=== PATIENT | female | born 1975 | race Caucasian/White ===

== ENCOUNTER → 2018-12-17 | Outpatient (CLI) | payer OTHER ==
[~2018-12-17] MED LIST: CETI10CA8 PO; HYDR-317 PO; KET10 PO; LEVO50TA86 PO; LORA10CA3 PO; MULT-1335 PO; PER PO
== END ==
LOC: MAMO 00:37
PROVIDERS: ATTEND Obstetrics & Gynecology
DX: Z02.9 Encounter for administrative examinations, unspecified (principal)

== ENCOUNTER → 2018-12-17 | Outpatient (CLI) | payer OTHER ==
[~2018-12-17] MED LIST changes: +IOPAMIDOL 76% 150 ML INFUS BTL 0 ML ONE
--- NOTE | 2018-12-17 09:41 | RADIOLOGY IMAGING REPORT ---
FACILITY: [facility] - [place] PATIENT NAME: Joelle Sanchez : 1975 MR: [id number] V: [id number] EXAM DATE: ORDERING PHYSICIAN: JOSE ANTONIO COLORADO TECHNOLOGIST: Location: [facility] Patient: Joelle Sanchez : 1975 Visit/Account:[id number] Date of Sevice: 12/17/2018 ADDENDUM #1 ADDENDUM: One of the following dose optimization techniques was utilized in the performance of this exam: Autom ated exposure control; adjustment of the mA and/or kV according to the patient's size; or use of an i terative reconstruction technique. Specific details can be referenced in the facility's radiology C T exam operational policy. Report Dictated By: Ajay Garcia MD at 12/20/2018 3:37 PM Report E-Signed By: Ajay Garcia MD at 12/20/2018 3:37 PM ORIGINAL REPORT Abdominal CT scan without contrast. HISTORY: Recent epigastric surgery, history of "epigastric" hernia. COMPARISON: 02/25/2014. 3 mm thick and [address] images were obtained from the diaphragm to the iliac crests using 24 ounces of oral water. No intravenous contrast. FINDINGS: Parenchymal detail is limited without intravenous contrast. Bowel detail is limited without iodinate d contrast. Lung bases are clear. The left liver lobe is slightly elongated, unchanged. The liver and spleen are otherwise normal in s ize. Low-density areas are present in the liver consistent with unopacified vessels. Surgical clips are present in the gallbladder fossa. The stomach and duodenum contain moderate amounts of fluid. The pancreas is not well-visualized. The kidneys and adrenal glands are normal in size. No hydronep hrosis. No abnormal renal calcifications are identified. A small fatty collection measuring 5 mm in transverse diameter protrudes into the umbilicus, unchanged. No acute bony abnormalities. FINDINGS: Absent gallbladder. Tiny fat-containing umbilical hernia, unchanged. Report Dictated By: Ajay Garcia MD at 12/17/2018 9:22 AM Report E-Signed By: Ajay Garcia MD at 12/17/2018 9:34 AM WSN:[facility]
== END ==
LOC: CT 00:35
PROVIDERS: ATTEND Family Medicine
DX: K42.9 Umbilical hernia without obstruction or gangrene (principal); Z90.49 Acquired absence of other specified parts of digestive tract
CPT/HCPCS: 74150; Q9967

== ENCOUNTER → 2019-03-19 | Outpatient (CLI) | payer OTHER ==
[~2019-03-19] MED LIST changes: -IOPAMIDOL 76% 150 ML INFUS BTL 0 ML ONE
--- NOTE | 2019-03-20 13:57 | RADIOLOGY IMAGING REPORT ---
FACILITY: [facility] - [place] PATIENT NAME: BEATA JIMENEZ : [id number] MR: [id number] V: [id number] EXAM DATE: ORDERING PHYSICIAN: FABIO CAMPOS TECHNOLOGIST: Amberly Bangura PROCEDURE:BILATERAL DIAGNOSTIC DIGITAL MAMMOGRAM WITH CAD ASSISTED INTERPRETATION & 3D TOMOSYNTHESIS REASON FOR STUDY: Palpable Left breast lump times 6 weeks in the upper outer quadrant. COMPARISON STUDIES: None. MAMMOGRAM VIEWS OBTAINED: Bilateral 2D & 3D full field CC & MLO projections, a full field 2D Left XCC projection & bilateral 2D & 3D Spot compression views in CC projections. BREAST DENSITY: The breasts are heterogeneously dense which can obscure small masses. MAMMOGRAM FINDINGS: There is no demonstration of malignant appearing mass or calcification in either breast. ULTRASOUND AREA SCANNED: The lateral portion of the Left breast from 12-6 o'clock. ULTRASOUND FINDINGS: Multiple cysts are identified. There is a small cluster of cysts in the 12 o'clock position of the Left breast the latest measuring approximately 6.4mm in diameter likely accounting for patient's palpable findings. There is a 3mm cyst in the 1 o'clock position of the Left breast. There is a 6mm cyst in the 2 o'clock position of the Left breast. There is a cluster of cysts in the 4 o'clock position of the Left breast collectively measuring 1.1cm. DIAGNOSTIC CATEGORY 2--BENIGN FINDING. RECOMMENDATIONS: ROUTINE MAMMOGRAM AND CLINICAL EVALUATION. IMPRESSION: BIRADS 2: Benign finding. There are multiple Left breast cysts. Dictated by: Malena Dobson M.D. on 03/19/2019 at 16:50 Transcribed by: VIDYA on 03/20/2019 at 13:25 Approved by: Malena Dobson M.D. on 03/20/2019 at 13:53 [facility]
--- NOTE | 2019-03-20 13:58 | RADIOLOGY IMAGING REPORT ---
FACILITY: [facility] - [place] PATIENT NAME: BEATA JIMENEZ : [id number] MR: [id number]: [id number] EXAM DATE: [id number] ORDERING PHYSICIAN: FABIO CAMPOS TECHNOLOGIST: Calista Smith RDMS(ABD,OBGYN,BR),RVT Caution: Report not yet finalized and possibly incomplete! PROCEDURE:BILATERAL DIAGNOSTIC DIGITAL MAMMOGRAM WITH CAD ASSISTED INTERPRETATION & 3D TOMOSYNTHESIS REASON FOR STUDY: Palpable Left breast lump times 6 weeks in the upper outer quadrant. COMPARISON STUDIES: None. MAMMOGRAM VIEWS OBTAINED: Bilateral 2D & 3D full field CC & MLO projections, a full field 2D Left XCC projection & bilateral 2D & 3D Spot compression views in CC projections. BREAST DENSITY: The breasts are heterogeneously dense which can obscure small masses. MAMMOGRAM FINDINGS: There is no demonstration of malignant appearing mass or calcification in either breast. ULTRASOUND AREA SCANNED: The lateral portion of the Left breast from 12-6 o'clock. ULTRASOUND FINDINGS: Multiple cysts are identified. There is a small cluster of cysts in the 12 o'clock position of the Left breast the latest measuring approximately 6.4mm in diameter likely accounting for patient's palpable findings. There is a 3mm cyst in the 1 o'clock position of the Left breast. There is a 6mm cyst in the 2 o'clock position of the Left breast. There is a cluster of cysts in the 4 o'clock position of the Left breast collectively measuring 1.1cm. DIAGNOSTIC CATEGORY 2--BENIGN FINDING. RECOMMENDATIONS: ROUTINE MAMMOGRAM AND CLINICAL EVALUATION. IMPRESSION: BIRADS 2: Benign finding. There are multiple Left breast cysts. Dictated by: Malena Dobson M.D. on 03/19/2019 at 16:51 Transcribed by: VIDYA on 03/20/2019 at 13:26 Approved by: Malena Dobson M.D. on 03/20/2019 at 13:53 [facility]
== END ==
LOC: MAMO 00:58
PROVIDERS: ATTEND Obstetrics & Gynecology
DX: N60.02 Solitary cyst of left breast (principal)
CPT/HCPCS: 77062; 77066